=== PATIENT | male | born 1970 | race Caucasian/White ===

== ENCOUNTER 2018-09-06 07:30 | Day surgery (SDC) | payer OTHER ==
[~2018-09-06 07:30] MED LIST: BONTRIL PO; LIPITOR40 MG PO; LISINOPRIL20 MG PO; VITAMIN D10000 UNIT PO
== END 2018-09-06 14:40 | disposition home or self-care (01) ==
LOC: CIR.AMB 07:30
DX: K64.8 Other hemorrhoids (principal); K64.4 Residual hemorrhoidal skin tags